=== PATIENT | male | born 1945 | race Caucasian/White ===

== ENCOUNTER 2019-04-12 18:24 | Inpatient (IN) | payer MEDICARE ==
[~2019-04-12] VITALS: Ht 172.7 cm; Wt 65.3 kg
--- NOTE | 2019-04-12 18:31 | NUR ---
BIB [facility] FROM HOME,WORSENING SHORTNESS OF BREATH X "FEW WEEKS" pt to bed 7, nad noted, placed on monitor, vss, pending md lord
[2019-04-12] MEDS ORDERED: IV NS 0.9% 500 ML BAG IV ONE (19:00)
[2019-04-12 19:27] LABS: BASOPHILS # (AUTO) 0.1 /CMM (0.0-0.2); BASOPHILS % (AUTO) 0.8 % (0.0-2.0); EOSINOPHILS % (AUTO) 2.1 % (0.0-6.0); HEMATOCRIT 29 % (39-51); HEMOGLOBIN 9.2 g/dL (13.5-17.5); LYMPHOCYTES % (AUTO) 15.4 % (20.0-44.0); MEAN CORPUSCULAR HGB CONC 32 g/dl (31.0-36.0); MEAN CORPUSCULAR VOLUME 88 fL (80-96); MONOCYTES # (AUTO) 0.7 /CMM (0.1-1.30); MONOCYTES % (AUTO) 10.2 % (2.0-12.0); NEUTROPHILS # (AUTO) 4.8 /CMM (1.8-8.9); NEUTROPHILS % (AUTO) 71.5 % (43.0-81.0); PLATELET COUNT (AUTO) 375 /CMM (150-450); RED BLOOD CELL COUNT(AUTO) 3.31 MIL/uL (4.5-6.0); WHITE BLOOD COUNT (AUTO) 6.7 K/uL (4.3-11.0)
[2019-04-12 19:35] LABS: CALCIUM, SERUM 10.1 mg/dL (8.5-10.1); CARBON DIOXIDE 33 mmol/L (21-32); CHLORIDE 104 mmol/L (98-107); CREATININE 2.4 mg/dL (0.6-1.3); GLUCOSE 86 mg/dL (74-106); POTASSIUM 4.5 mmol/L (3.5-5.1); SODIUM SERUM 145 mmol/L (136-145); UREA NITROGEN, BLOOD 32 mg/dL (7-18)
[2019-04-12 19:41] LABS: ALANINE AMINOTRANSFERASE 11 U/L (12-78); ALBUMIN 2.8 g/dL (3.4-5.0); ALKALINE PHOSPHATASE 129 U/L (46-116); ASPARTATE AMINOTRANSFERASE 34 U/L (15-37); BILIRUBIN,DIRECT 0.1 mg/dL (0.0-0.2); BILIRUBIN,TOTAL 0.2 mg/dL (0.2-1.0)
[2019-04-12 20:07] LABS: APPEARANCE,URINE Slightly Cloudy (CLEAR); BILIRUBIN,URINE Negative (NEGATIVE); BLOOD, URINE Negative Ery/uL (NEGATIVE); COLOR,URINE Yellow (YELLOW); KETONES,URINE Negative (NEGATIVE); LEUKOCYTE ESTERASE ,URINE Negative (NEGATIVE); NITRITE, URINE Negative (NEGATIVE); PH,URINE 7.5 (5.0-8.0); PROTEIN,URINE Negative (NEGATIVE); UGLUCOSE Negative (NEGATIVE); UROBILINOGEN,URINE 0.2 EU/dL (0.2)
[2019-04-12] MEDS ORDERED: ONDANSETRON 4 MG TAB.RAPDIS ONE (20:38)
[2019-04-12] MEDS ORDERED: ONDANSETRON 4 MG TAB.RAPDIS SL ONE (21:00)
--- NOTE | 2019-04-12 21:28 | NUR ---
vitals signs updated, -sob, nad noted
[2019-04-12] MEDS ORDERED: CARV3.122 PO (21:55)
[2019-04-12] MEDS ORDERED: ROSU10TA2 PO (21:55)
[2019-04-12] MEDS ORDERED: ESCI10TA PO (21:55)
[2019-04-12] MEDS ORDERED: ASPI-1169 PO (21:55)
[2019-04-12] MEDS ORDERED: HYDR-4076 PO (21:55)
[2019-04-12] MEDS ORDERED: BUDE10.2 IH (21:55)
[2019-04-12] MEDS ORDERED: MELA5TAB PO (21:55)
[2019-04-12] MEDS ORDERED: MORPHINE SULFATE INJ 2 MG/ML DISP.SYRIN IV ONE (22:00)
[2019-04-12] MEDS ORDERED: MAGNESIUM HYDROXIDE 30 ML UDC PO PRN (22:30)
[2019-04-12] MEDS ORDERED: MAG HYDROX/AL HYDROX/SIMETH 30 ML UDC PO PRN (22:30)
[2019-04-12] MEDS ORDERED: Z GUARD REMEDY 2 OZ OINT TP PRN (22:30)
[2019-04-12] MEDS ORDERED: ACETAMINOPHEN 325 MG TABLET PO PRN (22:30)
[2019-04-12] MEDS ORDERED: hydrALAZINE HCL 25 MG TABLET PO PRN (22:30)
[2019-04-12] MEDS ORDERED: ZOLPIDEM TARTRATE 5 MG TABLET PO PRN (22:30)
[2019-04-12] MEDS ORDERED: HYDROCODONE/APAP 5/325MG 1 EACH TABLET PO PRN (22:30)
[2019-04-12] MEDS ORDERED: MORPHINE SULFATE INJ 2 MG/ML DISP.SYRIN IV PRN (22:30)
--- NOTE | 2019-04-12 22:37 | NUR ---
report given to raul rodriguez for louie pt transported to [address] [place] [address]
[2019-04-12 23:40] VITALS: BP 145/76
--- NOTE | 2019-04-12 23:45 | NUR ---
ADMISSION NOTES: RECEIVED REPORT FROM FRANKLIN EDWARDS RN. PT BROUGHT TO THE UNIT VIA GURNEY AT 2230. MET WITH PT'S FAMILY AT BED SIDE. PT ABLE TO AMBULATE WITH ASSISTANCE, CONTINENT, A/O X3 ON RA REFUSING OXYGEN, VS TAKEN AND RECORDED, SPO2 94% ON RA. IV ACCESS PATENT AND FLUSHING WELL, ON HL. INVENTORY OF BELONGINGS COMPLETED BY ELEMENTARY SCHOOL DIRECTOR. FAMILY/ TOOK PT'S JEWELRIES HOME. ORIENTED PT TO UNIT POLICY AND HOURLY ROUNDING. SKIN ASSESSMENT PERFORMED. PT S/P CHEMO 6WEEKS AGO/JAN 2019 AT [facility]. PT ADMITS TO USING CANNABIS TAC EDIBLE STATED 2 1/2 MG TO 10MG CAPSULE TO HELP HIM SLEEP. PER PATIENT AND FAMILY, NO NARCOTICS, NO MORPHINE, NO SLEEPING PILL FOR PT. PROVIDED SANDWICHES AND JELL-O, PT ATE 100%. URINAL PROVIDED. STAND BY OXYGEN PROVIDED. PLACED ON TELE MONITORING, SINUS RHYTHM HR 75, DENIES ANY SOB AT THIS TIME, DENIES ANY CHEST PAIN AT THIS TIME. SAFETY PRECAUTIONS FOR FALL INITIATED, CALL LIGHT IN REACH, WILL CONTINUE MONITORING PT.
[2019-04-13] VITALS: BP 126/67
--- NOTE | 2019-04-13 04:00 | NUR ---
rn notes/refusal for vs: pt refused for 0400am vital sign stated he's feeling nauseated and requesting for zofran. education provided to pt regarding importance of vs monitoring, pt on sinus rhythm hr 64.
[2019-04-13] MEDS: ONDANSETRON HCL/PF 4 MG/2 ML VIAL IVP PRN (04:22)
--- NOTE | 2019-04-13 04:25 | NUR ---
prn zofran: pt c/o being nauseated requesting for zofran, prn zofran ivp administered to pt at this time, will continue to monitor and reassess.
--- NOTE | 2019-04-13 05:25 | NUR ---
rn notes: pt remains to refused vs check, education provided to pt. informed pt not to eat or drink till his nausea goes away, and avoid sudden changing of position or sudden movement,urinal placed within reach. placed on 2l oxygen for comfort.
--- NOTE | 2019-04-13 06:40 | NUR ---
rn notes: spoked with hospitalist supervisor fabrication and assembly dr ivan, as pt still complaining of nausea, received prn zofran an hour ago. per md received telephone order to give reglan 10mg ivp q8hrs prn for n/v, order read back verified and carried out.
--- NOTE | 2019-04-13 06:54 | NUR ---
prbn reglan: pt c/o nausea, prn reglan 10 mg ivp administered to pt at this time.
--- NOTE | 2019-04-13 06:56 | NUR ---
end of shift report: pt remains on ra, respirations even and unlabored, denies any chest pain at this time. iv access remains patent and flushing well, on hl, no s/sof iv infiltration noted. remains on tele monitoring sinus rhythm hr 62. prn zofran and reglan administered for c/o nausea . again, per pt and family, no narcotics, no morphine and no sleeping pill to be given to pt. awaiting nephro and neuro consult. q4hrs neuro monitoring performed.vs remains stable, urinal within reach. safety precautions for fall remains engaged, call light in reach, will endorse to day rn for continuity of care.
[2019-04-13] MEDS ORDERED: METOCLOPRAMIDE HCL 10 MG/2 ML VIAL IV PRN (07:00)
--- NOTE | 2019-04-13 07:30 | NUR ---
RN OPENING NOTE: RECEIVED PATIENT IN BED THIS MORNING. NO ACUTE DISTRESS NOTED. ALERT X3, AMBULATORY WITH ASSIST. CONTINENT, BRP. PATIENT IS ON NC O2 2L/MIN FOR COMFORT. NO RESPIRATORY DISTRESS NOTED. #20 ON LAC, FLUSHING WELL, C/D/I, NO SIGNS OF COMPLICATIONS NOTE. ON TELE MONITOR, SR. SAFETY MEASURES IMPLEMENTED, BED IN LOWEST POSITION, LOCKED, SIDE RAILS UP X2. WILL CONTINUE TO MONITOR PATIENT FOR ANY CHANGES.
[2019-04-13 08:00] VITALS: BP 173/87
[2019-04-13 08:12] LABS: BASOPHILS # (AUTO) 0.1 /CMM (0.0-0.2); BASOPHILS % (AUTO) 0.8 % (0.0-2.0); HEMATOCRIT 25 % (39-51); HEMOGLOBIN 8.4 g/dL (13.5-17.5); LYMPHOCYTES # (AUTO) 0.9 /CMM (0.8-4.8); LYMPHOCYTES % (AUTO) 11.7 % (20.0-44.0); MEAN CORPUSCULAR HGB CONC 33 g/dl (31.0-36.0); MEAN CORPUSCULAR VOLUME 87 fL (80-96); MONOCYTES # (AUTO) 0.8 /CMM (0.1-1.30); MONOCYTES % (AUTO) 10.7 % (2.0-12.0); NEUTROPHILS # (AUTO) 5.5 /CMM (1.8-8.9); NEUTROPHILS % (AUTO) 74.8 % (43.0-81.0); PLATELET COUNT (AUTO) 339 /CMM (150-450); RED BLOOD CELL COUNT(AUTO) 2.92 MIL/uL (4.5-6.0); WHITE BLOOD COUNT (AUTO) 7.3 K/uL (4.3-11.0)
[2019-04-13 08:24] LABS: IRON, SERUM 15 ug/dl (50-175); TOTAL IRON BINDING CAPACITY 211 ug/dl (250-450)
[2019-04-13] MEDS: PANTOPRAZOLE 40 MG TABLET.DR PO SCH (08:27)
[2019-04-13 08:32] LABS: CALCIUM, SERUM 9.6 mg/dL (8.5-10.1); CARBON DIOXIDE 33 mmol/L (21-32); CHLORIDE 104 mmol/L (98-107); CREATININE 2.3 mg/dL (0.6-1.3); GLUCOSE 102 mg/dL (74-106); MAGNESIUM 2.4 mg/dL (1.8-2.4); PHOSPHORUS 4.7 mg/dL (2.5-4.9); POTASSIUM 4.2 mmol/L (3.5-5.1); SODIUM SERUM 142 mmol/L (136-145); UREA NITROGEN, BLOOD 28 mg/dL (7-18)
[2019-04-13 08:37] LABS: CHOLESTEROL 188 mg/dL (<200); HDL CHOLESTEROL 61 mg/dL (40-60); LDL 98 mg/dL (0-99); THYROID STIMULATING HORMONE 3.824 uIU/mL (0.358-3.74); TRIGLYCERIDES 107 mg/dL (30-150)
[2019-04-13 12:00] VITALS: BP 153/84
--- NOTE | 2019-04-13 13:52 | NUR ---
DR ZAVALA AWARE OF THE "GUIDED US PARACENTESIS UNDER RIGHT LUNG" ORDER AND STATED THAT HE WOULD MAKE CHANGES BASED ON HIS OBSERVATIONS/ FINDINGS FROM THE US. Addendum: 04/13/19 at 1925 by SHANTANU BRADLEY RN ENDORSED TO FOLLOWING SHIFT TO FOLLOW UP WITH CLARIFICATION.
[2019-04-13] MEDS ORDERED: IV NS 0.9% 500 ML IV ONE (15:00)
[2019-04-13] MEDS: SOD FERRIC GLUC 125 MG in IV NS 0.9% 100 ML IV SCH (15:10)
[2019-04-13 16:00] VITALS: BP 134/65
[2019-04-13] MEDS: CARVEDILOL 3.125 MG TABLET PO SCH (17:15)
--- NOTE | 2019-04-13 19:10 | NUR ---
RN OPENING NOTE RECEIVED PATIENT IN BED WITH HOB ELEVATED. FAMILY AT BEDSIDE. BREATHING EVEN AND NON LABORED. NO SOB NOTED. ON O2 2L VIA NC. ABLE TO MAKE NEEDS KNOWN. NO C/O OF PAIN AT THIS TIME. ON IV HYDRATION RUNNING AT 80 ML/HR VIA LEFT AC IV. PER FAMILY, PATIENT IS AMBULATORY, MAY USE URINAL WHILE IN BED. URINE IS CLEAR AND YELLOW IN COLOR. IN NO APPARENT DISTRESS NOTED AT THIS TIME. WILL CONTINUE TO MONITOR.
--- NOTE | 2019-04-13 19:41 | NUR ---
RN CLOSING NOTE: PATIENT IS RESTING IN BED WITH FAMILY AT BEDSIDE. NO SIGNIFICANT CHANGES NOTED. PATIENT IS ON NC O2 2L/MIN FOR COMFORT. NO RESPIRATORY DISTRESS NOTED. #20 ON LAC, FLUSHING WELL, C/D/I, NO SIGNS OF COMPLICATIONS NOTE. ON TELE MONITOR, SR WITH 1ST DEGREE AV BLOCK. SAFETY MEASURES IMPLEMENTED, BED IN LOWEST POSITION, LOCKED, SIDE RAILS UP X2. ENDORSED TO FOLLOWING SHIFT FOR CONTINUITY OF CARE ALONG WITH INFORMING TO FOLLOW UP WITH CLARIFICATION FOR THE PARACENTESIS ORDER INPUT.
[2019-04-13 20:00] VITALS: BP 151/88
[2019-04-13] MEDS: ATORVASTATIN 40 MG TABLET PO SCH (21:20)
[2019-04-14] VITALS (7 sets, daily range): BP systolic 111–168; BP diastolic 67–93
[2019-04-14] MEDS: IV NS 0.9% 1,000 ML IV PRN (06:30)
[2019-04-14] MEDS: hydrALAZINE HCL 25 MG TABLET PO SCH (06:40)
--- NOTE | 2019-04-14 06:53 | NUR ---
RN CLOSING NOTE PATIENT IS IN BED RESTING WITH HOB. A&O X3. BREATHING EVEN AND NON LABORED. NO SIGNIFICANT CHANGES NOTED THROUGHOUT THE NIGHT. PATIENT REMAINED STABLE. ENDORSED TO AM SHIFT RN VEENA FOR CONTINUATION OF CARE.
--- NOTE | 2019-04-14 07:20 | NUR ---
REHEATER HELPER OPENING NOTE RECEIVED BEDSIDE REPORT. PT AWAKE IN BED, ALERT AND ORIENTED X 4, ON 02 VIA NC 2L/MIN, SATURATING WELL, NO SIGNS OF RESPIRATORY DISTRESS, PT BECOMES VISIBLY SOB WHEN AMBULATING. SINUS RHYTHM ON TELE MONITOR. IV SITE ON LEFT AC G20 INTACT, PATENT, NS INFUSING AT 80CC/HR, NO SIGNS OF INFILTRATION NOTED. BED IN LOW POSITION, LOCKED, CALL LIGHT WITHIN REACH.
[2019-04-14] MEDS: PANTOPRAZOLE 40 MG TABLET.DR PO SCH (07:28)
[2019-04-14] MEDS: FLUTICASONE/VILANTEROL 1 EACH BLST.W.DEV IH SCH (08:04)
[2019-04-14] MEDS: ESCITALOPRAM OXALATE (10 MG) 10 MG TABLET PO SCH (08:05)
[2019-04-14] MEDS: ASPIRIN 81 MG TAB.CHEW PO SCH (08:05)
[2019-04-14] MEDS: MODAFINIL 100 MG TABLET PO SCH (08:05)
[2019-04-14] MEDS: CARVEDILOL 3.125 MG TABLET PO SCH ×3 (08:05→16:33)
[2019-04-14 09:28] LABS: ABG BASE EXCESS 2.8 mmol/L; ABG PCO2 38.9 mmHg (35.0-45.0); ABG PH 7.457 (7.350-7.450); ABG PO2 97.7 mmHg (75.0-100.0); COHb 0.7 % (0.5-1.5); MetHb 0.3 % (0.0-1.5); SITE, ABG Right Brachial; VENT MODE, BG NASAL CANNULA
--- NOTE | 2019-04-14 09:57 | NUR ---
REFUSED LAB BLOOD DRAW
--- NOTE | 2019-04-14 12:07 | NUR ---
FORENSIC INVESTIGATOR RETURNED TO ATTEMPT TO DRAW BLOOD AGAIN, PT REFUSED.
[2019-04-14] MEDS: SOD FERRIC GLUC 125 MG in IV NS 0.9% 100 ML IV SCH (14:06)
--- NOTE | 2019-04-14 19:10 | NUR ---
RN OPENING NOTE RECEIVED PATIENT IN BED WITH HOB ELEVATED. WATCHING TV. A&O X3. BREATHING EVEN AND NON LABORED. NO SOB NOTED. ON O2 2L VIA NC. IN NO APPARENT DISTRESS NOTED AT THIS TIME. PER AM SHIFT RN, PATIENT IS S/P THORACENTESIS WITH 400 ML OUTPUT. ABLE TO MAKE NEEDS KNOWN. CALL LIGHT WITHIN EASY REACH. WILL CONTINUE TO MONITOR.
--- NOTE | 2019-04-14 19:16 | NUR ---
RIGHT PLEURAL FLUID SENT TO LAB. ENDORSED TO NOC SHIFT NURSE
[2019-04-14] MEDS: ONDANSETRON HCL/PF 4 MG/2 ML VIAL IVP PRN (20:32)
[2019-04-14] MEDS: ATORVASTATIN 40 MG TABLET PO SCH (21:22)
[2019-04-14 23:34] LABS: BASOPHILS # (AUTO) 0.1 /CMM (0.0-0.2); BASOPHILS % (AUTO) 1.1 % (0.0-2.0); HEMATOCRIT 25 % (39-51); HEMOGLOBIN 8.2 g/dL (13.5-17.5); LYMPHOCYTES % (AUTO) 15.7 % (20.0-44.0); MEAN CORPUSCULAR HGB CONC 33 g/dl (31.0-36.0); MEAN CORPUSCULAR VOLUME 87 fL (80-96); MONOCYTES # (AUTO) 0.8 /CMM (0.1-1.30); MONOCYTES % (AUTO) 12.4 % (2.0-12.0); NEUTROPHILS # (AUTO) 4.2 /CMM (1.8-8.9); NEUTROPHILS % (AUTO) 67.8 % (43.0-81.0); PLATELET COUNT (AUTO) 375 /CMM (150-450); RED BLOOD CELL COUNT(AUTO) 2.89 MIL/uL (4.5-6.0); WHITE BLOOD COUNT (AUTO) 6.2 K/uL (4.3-11.0)
[2019-04-15] VITALS: BP 155/82
[2019-04-15 00:02] LABS: ALANINE AMINOTRANSFERASE 12 U/L (12-78); ALBUMIN 2.4 g/dL (3.4-5.0); ALKALINE PHOSPHATASE 106 U/L (46-116); ASPARTATE AMINOTRANSFERASE 31 U/L (15-37); BILIRUBIN,TOTAL 0.2 mg/dL (0.2-1.0); CALCIUM, SERUM 9.3 mg/dL (8.5-10.1); CARBON DIOXIDE 31 mmol/L (21-32); CHLORIDE 102 mmol/L (98-107); GLUCOSE 93 mg/dL (74-106); POTASSIUM 4.5 mmol/L (3.5-5.1); SODIUM SERUM 139 mmol/L (136-145); TOTAL PROTEIN, SERUM 6.2 g/dL (6.4-8.2); UREA NITROGEN, BLOOD 25 mg/dL (7-18)
[2019-04-15] MEDS: IV NS 0.9% 1,000 ML IV PRN (01:51)
[2019-04-15 04:00] VITALS: BP 168/87
[2019-04-15] MEDS: hydrALAZINE HCL 25 MG TABLET PO SCH (06:11)
--- NOTE | 2019-04-15 06:53 | NUR ---
RN CLOSING NOTE PATIENT IS IN BED RESTING. BREATHING EVEN AND NON LABORED. A&O X3. IN NO APPARENT DISTRESS AT THIS TIME. NO SIGNIFICANT CHANGES NOTED THROUGHOUT THE NIGHT. PATIENT REMAINED STABLE. DUE MEDS GIVEN AND TOLERATED WELL. ALL NEEDS ATTENDED AND MET. PATIENT IS KEPT CLEAN, DRY, AND COMFORTABLE. WILL ENDORSE TO AM SHIFT FOR CONTINUATION OF CARE.
[2019-04-15] MEDS: ESCITALOPRAM OXALATE (10 MG) 10 MG TABLET PO SCH (08:19)
[2019-04-15] MEDS: PANTOPRAZOLE 40 MG TABLET.DR PO SCH (08:19)
[2019-04-15 08:21] VITALS: BP 155/88
[2019-04-15] MEDS: MODAFINIL 100 MG TABLET PO SCH (08:21)
[2019-04-15] MEDS: ASPIRIN 81 MG TAB.CHEW PO SCH (08:21)
[2019-04-15] MEDS: CARVEDILOL 3.125 MG TABLET PO SCH (08:21)
[2019-04-15] MEDS: FLUTICASONE/VILANTEROL 1 EACH BLST.W.DEV IH SCH (08:23)
[2019-04-15 09:51] LABS: BASOPHILS # (AUTO) 0.1 /CMM (0.0-0.2); BASOPHILS % (AUTO) 1.3 % (0.0-2.0); EOSINOPHILS % (AUTO) 2.4 % (0.0-6.0); HEMATOCRIT 28 % (39-51); LYMPHOCYTES # (AUTO) 0.9 /CMM (0.8-4.8); LYMPHOCYTES % (AUTO) 13.9 % (20.0-44.0); MEAN CORPUSCULAR HGB CONC 32 g/dl (31.0-36.0); MEAN CORPUSCULAR VOLUME 87 fL (80-96); MONOCYTES # (AUTO) 0.6 /CMM (0.1-1.30); NEUTROPHILS # (AUTO) 4.5 /CMM (1.8-8.9); NEUTROPHILS % (AUTO) 72.4 % (43.0-81.0); PLATELET COUNT (AUTO) 371 /CMM (150-450); RED BLOOD CELL COUNT(AUTO) 3.21 MIL/uL (4.5-6.0); WHITE BLOOD COUNT (AUTO) 6.2 K/uL (4.3-11.0)
[2019-04-15 09:53] LABS: ALANINE AMINOTRANSFERASE 10 U/L (12-78); ALBUMIN 2.5 g/dL (3.4-5.0); ALKALINE PHOSPHATASE 115 U/L (46-116); ASPARTATE AMINOTRANSFERASE 31 U/L (15-37); BILIRUBIN,TOTAL 0.2 mg/dL (0.2-1.0); CALCIUM, SERUM 9.8 mg/dL (8.5-10.1); CARBON DIOXIDE 28 mmol/L (21-32); CHLORIDE 102 mmol/L (98-107); CREATININE 1.9 mg/dL (0.6-1.3); GLUCOSE 153 mg/dL (74-106); MAGNESIUM 2.1 mg/dL (1.8-2.4); POTASSIUM 3.8 mmol/L (3.5-5.1); SODIUM SERUM 140 mmol/L (136-145); TOTAL PROTEIN, SERUM 6.5 g/dL (6.4-8.2); UREA NITROGEN, BLOOD 22 mg/dL (7-18)
[2019-04-15] MEDS ORDERED: PANT40TA2 PO (12:16)
[2019-04-15] MEDS ORDERED: FERR325T23 PO (12:16)
[2019-04-15] MEDS: SOD FERRIC GLUC 125 MG in IV NS 0.9% 100 ML IV SCH (14:00)
--- NOTE | 2019-04-15 14:56 | NUR ---
rn note pt oxygen saturation on room air is 92% with ambulation, at rest 96% on room air.
--- NOTE | 2019-04-15 16:24 | NUR ---
rn note pt d/c'ed home with in stable condition, wheeled out on wheelchair b.y ALBERTO Gandara. medication list sent to [facility] in [place] [phone]. exit care done to pt. discharge instructions given to pt, teachings done to pt. Pt verbalized understanding. belongings list signed, belongings provided to pt. papers signed, and copy left in chart. pt had small scab on left elbow, per pt report "its been there for a while, my primary doctor aware of it". picture taken, wound dressing applied with xerofrom and mepilex and extra supplies provided as well for home care. instructions provided, pt verbalized understanding. iv site removed, id band removed.
== END 2019-04-15 16:54 | disposition home or self-care (01) | DRG 56 ==
LOC: ER 18:31 → TELE-TD 22:06 → TELE1 22:52 → MEDSG1 04-15 10:03
PROVIDERS: ADMIT Student in an Organized Health Care Education/Training Program; ATTEND Registered Nurse
PROC: 0W993ZZ Drainage of Right Pleural Cavity, Percutaneous Approach (ICD-10-PCS; principal; 2019-04-13)
DX: G91.2 (Idiopathic) normal pressure hydrocephalus (principal); E43 Unspecified severe protein-calorie malnutrition; N17.0 Acute kidney failure with tubular necrosis; C34.90 Malignant neoplasm of unspecified part of unspecified bronchus or lung; J90 Pleural effusion, not elsewhere classified; E87.3 Alkalosis; I31.3 Pericardial effusion (noninflammatory); E86.0 Dehydration; N18.9 Chronic kidney disease, unspecified; I12.9 Hypertensive chronic kidney disease with stage 1 through stage 4 chronic kidney disease, or unspecified chronic kidney disease; I48.91 Unspecified atrial fibrillation; K21.9 Gastro-esophageal reflux disease without esophagitis; R26.9 Unspecified abnormalities of gait and mobility; D50.9 Iron deficiency anemia, unspecified; D75.89 Other specified diseases of blood and blood-forming organs; E03.9 Hypothyroidism, unspecified; R53.1 Weakness
CPT/HCPCS: 36415; 36600; 70450-TC; 71045-TC; 76770-TC; 80048-TC; 80053-TC; 80061-TC; 80076-TC; 81000-TC; 82533; 82803-TC; 83540-TC; 83605-TC; 83735-TC; 83880; 84100-TC; 84443-TC; 84484-TC; 85025-TC; 85730-TC; 87040-TC; 87070-TC; 87081-TC; 87086-TC; 88112-TC; 88305-TC; 88312-TC; 89051-TC; 93307-TC; 93970-TC; 97116-TC; 97530-TC; G0378; J2405; J2765; J2916; J7030; J7040; Q0162